=== PATIENT | female | born 1980 | race African-American/Black ===

== ENCOUNTER 2020-09-23 18:43 | Inpatient (IN) | payer OTHER ==
[2020-09-23 20:59] LABS: BASO % 0.6 % (0-2.0); EOS % 1.2 % (0-4.5); HEMATOCRIT 23.5 % (32.4-45.2); HEMOGLOBIN 7.1 GM/dL (10.7-15.3); LYMPH % 34.8 % (8-40); MCH 20.3 pg (25.7-33.7); MCHC 30.3 g/dl (32.0-36.0); MEAN CELL VOLUME 67.1 fl (80-96); MEAN PLT VOLUME 8.3 fl (7.5-11.1); MONO % 9.9 % (3.8-10.2); NEUT % 53.5 % (42.8-82.8); PLATELET COUNT 506 K/MM3 (134-434); RBC 3.51 M/mm3 (3.60-5.2); WHITE BLOOD COUNT 7.5 K/mm3 (4.0-10.0)
[2020-09-23 21:07] LABS: INR 1.01 (0.83-1.09); PROTHROMBIN TIME (PATIENT) 12.4 SEC (9.7-13.0)
[2020-09-23 21:18] LABS: CHLORIDE 105 mmol/L (98-107); SODIUM 134 mmol/L (136-145)
[2020-09-23 21:23] LABS: ALBUMIN 3.6 g/dl (3.4-5.0); BLOOD UREA NITROGEN 11.3 mg/dL (7-18); CALCIUM 8.5 mg/dL (8.5-10.1); GLUCOSE,RANDOM 75 mg/dL (74-106)
[2020-09-23 21:24] LABS: ANION GAP 6 MMOL/L (8-16); CO2 24 mmol/L (21-32)
[2020-09-23 21:25] LABS: CREATININE 0.9 mg/dL (0.55-1.3); SGOT/AST 32 U/L (15-37); SGPT/ALT 16 U/L (13-61)
[2020-09-23 21:27] LABS: BILIRUBIN,TOTAL 0.3 mg/dL (0.2-1)
[2020-09-23 21:28] LABS: TOT PROT 7.8 g/dl (6.4-8.2)
[2020-09-23 21:29] LABS: ALK PHOS 74 U/L (45-117)
[2020-09-23 21:35] LABS: ANISOCYTOSIS 2+; MACROCYTOSIS 0; OVALOCYTE 1+; PLATELET ESTIMATE INCREASED; TARGET CELLS 1+
[2020-09-23] MEDS ORDERED: SODIUM CHLORIDE 0.9% 500 ML INFUS.BAG IV ONE (21:50)
[2020-09-24] MEDS ORDERED: ALBUTEROL SO4 HFA INHALER IH PRN (00:11)
[2020-09-24] MEDS ORDERED: ALBUTEROL SO4 HFA INHALER IH ONE (00:32)
[2020-09-24 00:51] LABS: EPI CELLS >36 /uL (0-25.1); HYALINE CASTS 0 /uL (0-3.1); PH,URINE 6.5 (5.0-8.0); URINE APPEARANCE CLOUDY; URINE BACTERIA 1090 /uL (0-1359); URINE BILIRUBIN NEGATIVE (NEGATIVE); URINE COLOR YELLOW; URINE GLUCOSE (UA) NEGATIVE (NEGATIVE); URINE KETONE NEGATIVE (NEGATIVE); URINE LEUK ESTERASE 2+ (NEGATIVE); URINE NITRITE NEGATIVE (NEGATIVE); URINE PROTEIN NEGATIVE (NEGATIVE); URINE RBC 48 /uL (0-23.9); URINE UROBILINOGEN 0.2 mg/dL (0.2-1.0); URINE WBC 51 /uL (0-25.8)
[2020-09-24 03:32] VITALS: BMI 33.0
[2020-09-24] MEDS ORDERED: HEPARIN NA (PORCINE) 5,000 UNITS/ML 1ML VIAL SQ SCH (06:00)
[2020-09-24] MEDS ORDERED: CEPHALEXIN 250 MG/5 ML ORAL SUSPENSION PO SCH (06:00)
[2020-09-24 08:38] LABS: BASO % 0.4 % (0-2.0); HEMATOCRIT 23.7 % (32.4-45.2); HEMOGLOBIN 7.1 GM/dL (10.7-15.3); LYMPH % 40.6 % (8-40); MCH 21.2 pg (25.7-33.7); MCHC 30.1 g/dl (32.0-36.0); MEAN CELL VOLUME 70.6 fl (80-96); MEAN PLT VOLUME 7.9 fl (7.5-11.1); MONO % 10.6 % (3.8-10.2); NEUT % 47.4 % (42.8-82.8); PLATELET COUNT 372 K/MM3 (134-434); RBC 3.36 M/mm3 (3.60-5.2); RDW 22.6 % (11.6-15.6); WHITE BLOOD COUNT 6.2 K/mm3 (4.0-10.0)
[2020-09-24 09:21] LABS: CALCIUM 8.4 mg/dL (8.5-10.1)
[2020-09-24 09:23] LABS: ALBUMIN 3.2 g/dl (3.4-5.0); BILIRUBIN,TOTAL 0.4 mg/dL (0.2-1); BLOOD UREA NITROGEN 8.2 mg/dL (7-18); MAGNESIUM 2.4 mg/dL (1.8-2.4)
[2020-09-24 09:25] LABS: TOT PROT 6.6 g/dl (6.4-8.2)
[2020-09-24 09:26] LABS: CREATININE 0.6 mg/dL (0.55-1.3)
[2020-09-24] MEDS ORDERED: PRENATAL VITAMINS W/ FOLIC ACID TABLET (FP) PO SCH (10:00)
[2020-09-24] MEDS ORDERED: POLYETHYLENE GLYCOL 3350 119 GM BTL PO SCH (10:00)
[2020-09-24] MEDS ORDERED: CLOTRIMAZOLE 1% CREAM 15 GM TUBE TP SCH ×2 (10:00)
[2020-09-24] MEDS ORDERED: PT OWN MED DRAWER 7, Y5N ONE ×2 (10:21→18:06)
[2020-09-24 11:01] VITALS: TEMP 98.1
[2020-09-24] MEDS: CEPHALEXIN MONOHYDRATE 250 MG CAPSULE (FP) PO SCH ×2 (12:19→18:07)
[2020-09-24 15:36] VITALS: BP 124/63; PULSE 76
[2020-09-24] MEDS ORDERED: FERROUS SO4 325 MG TABLET (FP) PO SCH (17:30)
[2020-09-24 17:35] LABS: HEMATOCRIT 28.6 % (32.4-45.2); MCH 22.9 pg (25.7-33.7); MCHC 31.5 g/dl (32.0-36.0); MEAN CELL VOLUME 72.8 fl (80-96); MEAN PLT VOLUME 7.7 fl (7.5-11.1); PLATELET COUNT 380 K/MM3 (134-434); RBC 3.93 M/mm3 (3.60-5.2); RDW 24.9 % (11.6-15.6); WHITE BLOOD COUNT 8.4 K/mm3 (4.0-10.0)
[2020-09-25] MEDS ORDERED: FERROUS SO4 300 MG/5 ML ORAL SOLN UNIT DOSE CUPS PO SCH (10:00)
[2020-09-28 16:08] LABS: Hgb F 0; Hgb S 0
== END 2020-09-24 21:00 | disposition home or self-care (01) | DRG 833 ==
LOC: JER 18:43 → JERBED 21:49 → J8W 09-24 01:55
PROVIDERS: ADMIT Internal Medicine; ATTEND Internal Medicine
DX: O99.011 Anemia complicating pregnancy, first trimester (principal); Z3A.00 Weeks of gestation of pregnancy not specified; D50.9 Iron deficiency anemia, unspecified
CPT/HCPCS: 36415; 36430; 76817-TC; 80053; 81003; 82728; 82962; 83020; 83021; 83036; 83540; 83550; 83735; 84100; 84443; 84702; 85025; 85027; 85610; 85660; 86850; 86900; 86901; 86922; 87086; 87186; 93005; 93010; C9803; G0378; P9058; U0003; U0005

== ENCOUNTER 2021-05-16 02:00 | Inpatient (IN) | payer OTHER ==
[2021-05-16] MEDS ORDERED: AMPICILLIN SODIUM 2 GM VIAL ONE (02:58)
[2021-05-16] MEDS ORDERED: ELECTROLYTE-148 SOLN 500 ML IV ONE (03:13)
[2021-05-16] MEDS ORDERED: AMPICILLIN - 2 GM in SODIUM CHLORIDE 100 ML IVPB ONE ×2 (03:13→03:41)
[2021-05-16] MEDS ORDERED: CITRIC ACID/SODIUM CITRATE 30 ML UNIT-DOSE CUP PO ONE (03:13)
[2021-05-16] MEDS ORDERED: morphine SULFATE/PF 1 MG/2 ML (2cc Syringe - QUVA) EP ONE (03:35)
[2021-05-16] MEDS ORDERED: ONDANSETRON 4 MG/2 ML VIAL IVPUSH PRN (03:35)
[2021-05-16] MEDS ORDERED: ceFAZolin SODIUM 1 GM VIAL ONE (03:42)
[2021-05-16] MEDS ORDERED: PHENYLEPHRINE HCL 10 MG/1 ML SINGLE DOSE VIAL ONE (03:54)
[2021-05-16] MEDS ORDERED: OXYTOCIN 10 UNITS/ML VIAL ONE (04:05)
[2021-05-16] MEDS ORDERED: OXYTOCIN 20 UNITS in 0.9% NS 20 UNIT/1,000 ML INFUS.BAG IV ONE (04:21)
[2021-05-16] MEDS ORDERED: MEPERIDINE HCL 50 MG/ML VIAL ONE (04:21)
[2021-05-16 04:53] VITALS: BMI 36.7
[2021-05-16] MEDS ORDERED: ACETAMINOPHEN 325 MG TABLET (FP) PO PRN (04:55)
[2021-05-16] MEDS ORDERED: METHYLERGONOVINE MALEATE 0.2 MG/1 ML AMP IM PRN (04:55)
[2021-05-16] MEDS ORDERED: BENZOCAINE 28 GM HEMORRHOIDAL OINTMENT TP PRN (04:55)
[2021-05-16] MEDS ORDERED: BENZOCAINE 20% 57 GM BOTTLE TP PRN (04:55)
[2021-05-16] MEDS ORDERED: IBUPROFEN 800 MG/8 ML IJ IVPB PRN (04:55)
[2021-05-16] MEDS ORDERED: WITCH HAZEL 50% (TUCKS) 40 PAD/JAR PAD TP PRN (04:55)
[2021-05-16] MEDS ORDERED: OXYTOCIN 20 UNITS in 0.9% NS 20 UNIT/1,000 ML INFUS.BAG IV SCH (05:00)
[2021-05-16 05:36] LABS: CORD BASE EXCESS -5.6 mmol/L (0-2); CORD HCO3 20.7 mmHg (20-29); CORD pH 7.291 (7.14-7.44)
[2021-05-16 05:39] LABS: CORD HCO3 22.8 mmHg (20-29); CORD PCO2 58.1 mmHg (30-78); CORD pH 7.211 (7.14-7.44)
[2021-05-16] MEDS: FERROUS SO4 325 MG TABLET (FP) PO SCH ×2 (11:41→22:00)
[2021-05-16] MEDS: PRENATAL VITAMINS W/ FOLIC ACID TABLET (FP) PO SCH (11:41)
[2021-05-16] MEDS ORDERED: oxyCODONE HCL 5 MG TABLET PO PRN (16:56)
[2021-05-16] MEDS: SIMETHICONE 80 MG TAB.CHEW (FP) PO PRN (19:27)
[2021-05-16] MEDS: IBUPROFEN 600 MG TABLET (FP) PO PRN (19:28)
[2021-05-17] MEDS: IBUPROFEN 600 MG TABLET (FP) PO PRN ×3 (02:52→18:31)
[2021-05-17] MEDS: SIMETHICONE 80 MG TAB.CHEW (FP) PO PRN ×3 (02:52→15:27)
[2021-05-17] MEDS ORDERED: BISACODYL 10 MG SUPP.RECT RC PRN (04:56)
[2021-05-17 07:25] LABS: BASO % 0.3 % (0-2.0); EOS % 1.2 % (0-4.5); HEMATOCRIT 26.7 % (32.4-45.2); HEMOGLOBIN 9.1 GM/dL (10.7-15.3); LYMPH % 24.8 % (8-40); MCHC 34.1 g/dl (32.0-36.0); MEAN CELL VOLUME 93.7 fl (80-96); MEAN PLT VOLUME 9.7 fl (7.5-11.1); MONO % 7.6 % (3.8-10.2); NEUT % 66.1 % (42.8-82.8); PLATELET COUNT 129 10^3/uL (134-434); RBC 2.85 M/mm3 (3.60-5.2); RDW 13.4 % (11.6-15.6); WHITE BLOOD COUNT 10.4 K/mm3 (4.0-10.0)
[2021-05-17] MEDS: PRENATAL VITAMINS W/ FOLIC ACID TABLET (FP) PO SCH (10:11)
[2021-05-17] MEDS: FERROUS SO4 325 MG TABLET (FP) PO SCH ×2 (10:11→21:59)
[2021-05-17] MEDS: ENOXAPARIN NA (PORCINE) 40 MG/0.4 ML DISP.SYRIN SQ SCH (10:20)
[2021-05-17] MEDS: oxyCODONE HCL 5 MG TABLET PO PRN (15:27)
[2021-05-17] MEDS: SENNOSIDES/DOCUSATE COMBO (SENNA PLUS) TABLET (UD) PO PRN (21:58)
[2021-05-18] MEDS: SIMETHICONE 80 MG TAB.CHEW (FP) PO PRN ×5 (01:01→21:48)
[2021-05-18] MEDS: IBUPROFEN 600 MG TABLET (FP) PO PRN ×4 (01:03→21:48)
[2021-05-18] MEDS: oxyCODONE HCL 5 MG TABLET PO PRN (05:22)
[2021-05-18] MEDS: ENOXAPARIN NA (PORCINE) 40 MG/0.4 ML DISP.SYRIN SQ SCH (09:11)
[2021-05-18] MEDS: FERROUS SO4 325 MG TABLET (FP) PO SCH ×2 (09:12→21:47)
[2021-05-18] MEDS: PRENATAL VITAMINS W/ FOLIC ACID TABLET (FP) PO SCH (09:12)
[2021-05-18] MEDS: ELECTROLYTE-148 SOLN 1,000 ML IV SCH ×2 (21:47→21:48)
[2021-05-18] MEDS: SENNOSIDES/DOCUSATE COMBO (SENNA PLUS) TABLET (UD) PO PRN (21:48)
[2021-05-19] MEDS: SIMETHICONE 80 MG TAB.CHEW (FP) PO PRN ×2 (02:29→09:37)
[2021-05-19] MEDS: oxyCODONE HCL 5 MG TABLET PO PRN (02:30)
[2021-05-19 07:00] LABS: BASO % 0.4 % (0-2.0); EOS % 1.6 % (0-4.5); HEMATOCRIT 27.8 % (32.4-45.2); HEMOGLOBIN 9.2 GM/dL (10.7-15.3); LYMPH % 38.1 % (8-40); MCH 30.9 pg (25.7-33.7); MCHC 33.2 g/dl (32.0-36.0); MEAN CELL VOLUME 92.9 fl (80-96); MEAN PLT VOLUME 9.2 fl (7.5-11.1); MONO % 8.8 % (3.8-10.2); NEUT % 51.1 % (42.8-82.8); PLATELET COUNT 157 10^3/uL (134-434); RBC 2.99 M/mm3 (3.60-5.2); RDW 13.9 % (11.6-15.6); WHITE BLOOD COUNT 8.3 K/mm3 (4.0-10.0)
[2021-05-19] MEDS: ENOXAPARIN NA (PORCINE) 40 MG/0.4 ML DISP.SYRIN SQ SCH (09:27)
[2021-05-19] MEDS: FERROUS SO4 325 MG TABLET (FP) PO SCH (09:28)
[2021-05-19] MEDS: PRENATAL VITAMINS W/ FOLIC ACID TABLET (FP) PO SCH (09:37)
[2021-05-19 10:42] VITALS: BP 113/75; PULSE 94; TEMP 98.4
[2021-05-19] MEDS: IBUPROFEN 600 MG TABLET (FP) PO PRN (12:09)
[2021-05-26 13:48] LABS: POC NITRAZINE POS
== END 2021-05-19 12:40 | disposition home or self-care (01) | DRG 788 ==
LOC: JLDR 02:00 → J3W 06:14
PROVIDERS: ADMIT Obstetrics & Gynecology; ATTEND Obstetrics & Gynecology
PROC: 10D00Z1 Extraction of Products of Conception, Low, Open Approach (ICD-10-PCS; principal; 2021-05-16)
DX: O99.824 Streptococcus B carrier state complicating childbirth (principal); O99.214 Obesity complicating childbirth; O99.02 Anemia complicating childbirth; O99.283 Endocrine, nutritional and metabolic diseases complicating pregnancy, third trimester; E28.2 Polycystic ovarian syndrome; Z3A.38 38 weeks gestation of pregnancy; Z37.0 Single live birth; Z98.84 Bariatric surgery status
CPT/HCPCS: 36415; 36600; 82803; 83986-QW; 85025; 86850; 86900; 86901; 88307-TC; J2175